=== PATIENT | male | born 2000 | race Caucasian/White ===

== ENCOUNTER 2021-12-26 09:49 | Emergency (ER) | payer MEDICAID ==
[~2021-12-26] VITALS: Ht 188 cm; Wt 75.3 kg
--- NOTE | 2021-12-26 10:21 | NUR ---
Patient is resting comfortably on gurney while using his personal electronic device, NAD.
[2021-12-26 10:53] LABS: CARBON DIOXIDE 28 mmol/L (21-32); CHLORIDE 102 mmol/L (98-107); CREATININE 0.7 mg/dL (0.6-1.3); GLUCOSE 95 mg/dL (74-106); POTASSIUM 4.1 mmol/L (3.5-5.1); UREA NITROGEN, BLOOD 5 mg/dL (7-18)
[2021-12-26 10:55] LABS: HEMATOCRIT 37.5 % (36.7-47.1); MEAN CORPUSCULAR HEMOGLOBIN 31.1 uug (23.8-33.4); MEAN CORPUSCULAR VOLUME 90.5 fL (73.0-96.2); PLATELET COUNT (AUTO) 232 K/uL (152-348)
--- NOTE | 2021-12-26 11:17 | NUR ---
Patient discharged to home in stable condition with brisk steady gait. Written and verbal after care instructions given to patient. Patient verbalized understanding and compliance of instructions. Stressed follow up with primary doctor or return to ER for worsening s/s.
== END 2021-12-26 11:17 | disposition home or self-care (01) ==
LOC: ER 09:49
DX: R19.7 Diarrhea, unspecified (principal); F19.90 Other psychoactive substance use, unspecified, uncomplicated
CPT/HCPCS: 36415; 85025; A4663